=== PATIENT | female | born 1995 | race Caucasian/White ===

== ENCOUNTER 2017-06-20 00:23 | Emergency (ER) | payer BC, OTHER | END 2017-06-20 04:21 | disposition left against medical advice (07) | LOC: M ED 00:23 | DX: R55 Syncope and collapse (principal); Z53.21 Procedure and treatment not carried out due to patient leaving prior to being seen by health care provider | CPT/HCPCS: 93005 ==

== ENCOUNTER → 2019-04-14 | Outpatient (REF) | payer OTHER | LOC: M LAB REF 11:21 | PROVIDERS: ATTEND Physician Assistant | DX: J02.9 Acute pharyngitis, unspecified (principal) ==

== ENCOUNTER 2019-07-12 11:13 | Day surgery (SDC) | payer OTHER, BC ==
[~2019-07-12] VITALS: Ht 167.6 cm; Wt 67.5 kg
[~2019-07-12 11:13] MED LIST: BUPIVACAINE HCL 0.5% 10 ML VIAL As Ordered ONE; ENSK1TAB3 PO; IBUP200C25 PO; LIDOCAINE 1% MDV 20ML VIAL SQ PRN; LR 1,000 ML IV ONE; MULTCAP PO; VENTAER INH; VITAD1000T PO
[2019-07-12] MEDS ORDERED: METR-265 PO (11:40)
[2019-07-12] MEDS ORDERED: LIDOCAINE 2% INJ 100 MG/5 ML SDV (FOR ANES.) As Ordered ONE (12:22)
[2019-07-12] MEDS ORDERED: fentaNYL 250 MCG/5 ML INJECTION (J3010) As Ordered ONE (12:22)
[2019-07-12] MEDS ORDERED: propofoL 200 MG/20 ML VIAL As Ordered ONE (12:22)
[2019-07-12] MEDS ORDERED: ROCURONIUM BROMIDE 50 MG/5 ML VIAL As Ordered ONE (12:22)
[2019-07-12] MEDS ORDERED: MIDAZOLAM INJ 2 MG/2 ML VIAL (J2250) As Ordered ONE (12:24)
[2019-07-12] MEDS ORDERED: ACETAMINOPHEN 1000MG 100ML IV BTL (OFIRMEV) (J0131 PER 10MG) As Ordered ONE ×2 (12:44→12:45)
[2019-07-12] MEDS ORDERED: METOCLOPRAMIDE INJ 10MG/2ML VIAL (J2765) As Ordered ONE (12:45)
[2019-07-12] MEDS ORDERED: dexameTHASONE 4 MG/ML 1ML VIAL (J1100) As Ordered ONE (12:45)
[2019-07-12] MEDS ORDERED: ONDANSETRON 4MG/2ML VIAL (J2405) As Ordered ONE (12:45)
[2019-07-12] MEDS ORDERED: SUGAMMADEX SODIUM 500 MG/5 ML VIAL (BRIDION) As Ordered ONE (12:51)
[2019-07-12] MEDS ORDERED: oxyCODONE 5MG TAB As Ordered ONE (13:26)
[2019-07-12 13:45] VITALS: BP 109/76
[2019-07-12] MEDS ORDERED: ONDANSETRON 4MG/2ML VIAL (J2405) IV PRN (13:45)
[2019-07-12] MEDS ORDERED: oxyCODONE 5MG TAB PO PRN (13:45)
[2019-07-12] MEDS ORDERED: LR 1,000 ML IV SCH (13:45)
[2019-07-12] MEDS ORDERED: fentaNYL 100 MCG/2 ML INJECTION (J3010) IV PRN (13:45)
[2019-07-12] MEDS ORDERED: IBUPROFEN 800 MG TAB PO PRN (13:45)
[2019-07-12] MEDS ORDERED: HYDROcodone/APAP LIQUID 7.5-325MG 15ML UDC (LORTAB ELIXIR) PO PRN (13:45)
--- NOTE | 2019-07-13 23:42 | RO ---
DATE OF PROCEDURE: 07/12/2019 PREOPERATIVE DIAGNOSIS: Chronic tonsillitis. POSTOPERATIVE DIAGNOSIS: Chronic tonsillitis. PROCEDURE: Tonsillectomy. SURGEON: Andres Grande MD COLOR MAKER DYER: ANESTHESIA: INDICATIONS: This is a 23-year-old who presents with a history of recurrent tonsil stones, pharyngitis and sore throat. DESCRIPTION OF PROCEDURE: Satisfactory general endotracheal anesthesia was administered, patient placed in Trendelenburg position, Mony-Nelson gag was inserted. First, the right tonsil was grasped with an Allis clamp and retracted out of its muscular fossa. Using cutting cautery, incision was made on the anterior pillar 3 mm from its edge and the capsule of the tonsil was then identified. Using a combination of cautery and blunt dissection, the tonsil was dissected medially out of its muscular fossa, working superiorly down into the space between the constrictor muscle and the tonsil capsule. The tonsil was rolled medially out of its fossa, working inferiorly and preserving the posterior pillar in its entirety. Once the tonsil was suspended only at the inferior pole, coagulation current was used to amputate tissue. No significant bleeding was encountered in this dissection. The left tonsil was removed in a similar fashion. At the completion of the surgery, there was no significant blood loss noted. The gag was released at 3 minutes. Reinspection showed no active bleeding and then 0.5% Marcaine was injected into the tonsil fossa. She was awakened, extubated, and sent to recovery in satisfactory condition. She will be discharged home with Keflex suspension 250 mg twice a day and pain medicine will include Motrin 800 mg three times a day and Hycet elixir if needed.
== END 2019-07-12 14:39 | disposition home or self-care (01) ==
LOC: M SDC 11:13
PROVIDERS: ATTEND Specialist
DX: J35.01 Chronic tonsillitis (principal); E03.9 Hypothyroidism, unspecified; F41.9 Anxiety disorder, unspecified; F32.9 Major depressive disorder, single episode, unspecified; J45.909 Unspecified asthma, uncomplicated; Z79.899 Other long term (current) drug therapy
CPT/HCPCS: 42826; 81025; 88302; J0131; J1100; J2250; J2405; J2765; J3010

== ENCOUNTER → 2019-08-04 | Outpatient (CLI) | payer OTHER, BC ==
[~2019-08-04] MED LIST changes: -BUPIVACAINE HCL 0.5% 10 ML VIAL As Ordered ONE; -LIDOCAINE 1% MDV 20ML VIAL SQ PRN; -LR 1,000 ML IV ONE; +METR-265 PO
== END ==
LOC: M LABSMTC 10:29
PROVIDERS: ATTEND Family Medicine
DX: Z11.59 Encounter for screening for other viral diseases (principal); Z20.828 Contact with and (suspected) exposure to other viral communicable diseases

== ENCOUNTER → 2019-09-20 | Outpatient (REF) | payer OTHER ==
[2019-09-20 10:35] LABS: HEMATOCRIT 36.9 % (36.0-47.0); HEMOGLOBIN 12.7 g/dl (12.0-15.5); MEAN CORPUSCULAR HEMOGLOBIN 30.7 pg (27.0-33.0); MEAN CORPUSCULAR HGB CONC 34.4 g/dl (32.0-36.5); MEAN CORPUSCULAR VOLUME 89.1 fl (80.0-96.0); PLATELET COUNT, AUTOMATED 224 10^3/uL (150-450); RED BLOOD COUNT 4.14 10^6/uL (4.00-5.40); WHITE BLOOD COUNT 10.2 10^3/uL (4.0-10.0)
[2019-09-20 11:49] LABS: CHLAMYDIA DNA AMPLIFICATION NEGATIVE (NEGATIVE); GC DNA AMPLIFICATION NEGATIVE (NEGATIVE)
[2019-09-20 11:55] LABS: HEPATITIS B SURFACE ANTIGEN NEGATIVE (NEGATIVE); HEPATITIS C VIRUS ABY INDEX 0.1 INDEX (<0.8); HIV 1&2 SCREEN CENTAUR NEGATIVE (NEGATIVE)
== END ==
LOC: M PLALAB 08:09
PROVIDERS: ATTEND Advanced Practice Midwife
DX: Z34.01 Encounter for supervision of normal first pregnancy, first trimester (principal)

== ENCOUNTER 2019-10-05 12:18 | Emergency (ER) | payer OTHER ==
[~2019-10-05] VITALS: Ht 167.6 cm; Wt 63.4 kg
[2019-10-05] MEDS ORDERED: PREN29TA4 PO (12:57)
[2019-10-05] MEDS ORDERED: COLA100C5 PO (12:57)
[2019-10-05 14:03] LABS: BASO % 0.3 % (0.0-1.0); EOS # 0.1 10^3/uL (0.0-0.5); EOS % 1.5 % (0.0-3.0); HEMATOCRIT 40.3 % (36.0-47.0); HEMOGLOBIN 13.6 g/dl (12.0-15.5); LYMPH # 1.8 10^3/uL (1.5-5.0); LYMPH % 19.3 % (24.0-44.0); MEAN CORPUSCULAR HGB CONC 33.7 g/dl (32.0-36.5); MEAN CORPUSCULAR VOLUME 88.8 fl (80.0-96.0); MONO # 0.5 10^3/uL (0.0-0.8); MONO % 4.9 % (0.0-5.0); NEUTROPHILS # 6.8 10^3/uL (1.5-8.5); NEUTROPHILS % 73.7 % (36.0-66.0); PLATELET COUNT, AUTOMATED 233 10^3/uL (150-450); RED BLOOD COUNT 4.54 10^6/uL (4.00-5.40); WHITE BLOOD COUNT 9.3 10^3/uL (4.0-10.0)
[2019-10-05] MEDS ORDERED: METOCLOPRAMIDE INJ 10MG/2ML VIAL (J2765 PER 1) IV ONE (14:30)
[2019-10-05] MEDS ORDERED: NS 1,000 ML IV ONE (14:30)
[2019-10-05 15:21] LABS: ALBUMIN 3.7 GM/DL (3.2-5.2); ALT/SGPT 19 U/L (12-78); BILIRUBIN,DIRECT 0.2 MG/DL (0.0-0.2); BILIRUBIN,TOTAL 0.9 MG/DL (0.2-1.0); BLOOD UREA NITROGEN 9 MG/DL (7-18); CALCIUM LEVEL 9.5 MG/DL (8.5-10.1); CARBON DIOXIDE LEVEL 25 MEQ/L (21-32); CHLORIDE LEVEL 105 MEQ/L (98-107); CREATININE FOR GFR 0.56 MG/DL (0.55-1.30); GLOMERULAR FILTRATION RATE > 60.0 (>60); GLUCOSE, FASTING 69 MG/DL (70-100); HCG, SERUM QUANTITATIVE 131939 MIU/ML; LIPASE 126 U/L (73-393); POTASSIUM SERUM 3.7 MEQ/L (3.5-5.1); SODIUM LEVEL 137 MEQ/L (136-145); TOTAL PROTEIN 7.3 GM/DL (6.4-8.2)
[2019-10-05] MEDS ORDERED: REGL10TA6 PO (16:03)
[2019-10-05 16:20] VITALS: BP 103/53
== END 2019-10-05 16:22 | disposition home or self-care (01) ==
LOC: M ED 12:18
DX: O21.9 Vomiting of pregnancy, unspecified (principal); Z3A.12 12 weeks gestation of pregnancy; O99.341 Other mental disorders complicating pregnancy, first trimester; F32.9 Major depressive disorder, single episode, unspecified; F41.9 Anxiety disorder, unspecified; Z79.899 Other long term (current) drug therapy
CPT/HCPCS: 36415; 80048; 80076; 83690; 84702; 85025; 96361; 96374; 99284; J2765

== ENCOUNTER → 2019-10-15 | Outpatient (REF) | payer OTHER ==
[~2019-10-15] MED LIST changes: +COLA100C5 PO; +PREN29TA4 PO; +REGL10TA6 PO
[2019-10-15 14:26] LABS: FREE T4 1.01 NG/DL (0.76-1.46); THYROID STIMULATING HORMONE 3.94 uIU/ML (0.358-3.740)
== END ==
LOC: M PLALAB 11:18
PROVIDERS: ATTEND Advanced Practice Midwife
DX: O99.280 Endocrine, nutritional and metabolic diseases complicating pregnancy, unspecified trimester (principal); Z3A.13 13 weeks gestation of pregnancy

== ENCOUNTER → 2019-12-17 | Outpatient (CLI) | payer OTHER ==
[~2019-12-17] MED LIST changes: +D31000TA2 PO; -VITAD1000T PO
--- NOTE | 2020-02-03 09:54 | REP ---
OBSTETRICAL ULTRASOUND: Delay in reporting results from hospital computer system malfunction from malware/ ransomware. HISTORY: For anatomy. FINDINGS: There is a single intrauterine gestation. position is not described on the technologist worksheet, but upon review of the images, appears to be a breech presentation. The placenta is posterior and right lateral, grade 1 without previa and without abruptio. The heart rate is 135 beats per minute. The amniotic fluid volume subjectively is normal. The composite gestational age by the ultrasound today is 25 weeks 1 day with an EDC of 04/23/20. Estimated weight is 465 grams. The weight percentile is not calculated. The amniotic fluid volume subjectively is normal. The cervix measures 3.1 cm in length. The following anatomic structures are not optimally demonstrated: Four chamber view of the heart. A follow up study dedicated to this structure might be considered. The following anatomic structures are identified and are unremarkable: Cisterna magna, cavum septum pellucidum, thalami, spine, stomach, kidneys, cardiac right and left outflow tracts, bladder, three vessel cord, cord insertion, upper and lower extremities and face and upper lip. MTDD
== END ==
LOC: M WHC 16:43
PROVIDERS: ATTEND Advanced Practice Midwife
DX: Z34.02 Encounter for supervision of normal first pregnancy, second trimester (principal); Z3A.25 25 weeks gestation of pregnancy

== ENCOUNTER → 2020-01-06 | Outpatient (CLI) | payer OTHER ==
[2020-01-06 15:35] LABS: FREE T4 0.94 NG/DL (0.76-1.46); THYROID STIMULATING HORMONE 1.04 uIU/ML (0.358-3.740)
== END ==
LOC: M PLALAB 10:54
PROVIDERS: ATTEND Advanced Practice Midwife
DX: O99.280 Endocrine, nutritional and metabolic diseases complicating pregnancy, unspecified trimester (principal)

== ENCOUNTER → 2020-01-20 | Outpatient (CLI) | payer OTHER ==
--- NOTE | 2020-02-11 07:35 | REP ---
FOLLOW-UP OBSTETRICAL ULTRASOUND CLINICAL: Follow-up anatomical assessment. COMPARISON: 12/17/2019. TECHNIQUE: Transabdominal obstetrical ultrasound with color Doppler evaluation. FINDINGS: Current examination demonstrates single live intrauterine in cephalic presentation. motion was identified by the technologist. Placenta is noted posteriorly and grade 1 without evidence for placenta previa or abruption. Amniotic fluid volume is normal. Cervix measures 3.1 cm in length and appears closed. Gestational age by current measurements 27 weeks 5 days with estimated date of delivery 04/15/2020. heart rate 134 beats per minute. Amniotic fluid index (YESY) 11.1 cm. Estimated weight 1034 (44th percentile) Anatomical assessment demonstrates normal cranium, choroid plexus, facial features, four chamber heart/ventricular outflow tracts, diaphragm, stomach, kidneys, bladder, spine, three-vessel cord/cord insertion, and extremities. IMPRESSION: * Single live intrauterine in cephalic presentation demonstrating appropriate estimated weight. * In conjunction with prior examination, anatomical assessment is complete and normal. No gross abnormalities are identified. MTDD
== END ==
LOC: M WHC 14:34
PROVIDERS: ATTEND Advanced Practice Midwife
DX: Z36.89 Encounter for other specified antenatal screening (principal); Z3A.27 27 weeks gestation of pregnancy

== ENCOUNTER → 2020-02-01 | Outpatient (CLI) | payer OTHER ==
[2020-02-01 11:34] LABS: BASO # 0.1 10^3/uL (0.0-0.2); BASO % 0.4 % (0.0-1.0); EOS # 0.3 10^3/uL (0.0-0.5); EOS % 2.5 % (0.0-3.0); HEMATOCRIT 31.6 % (36.0-47.0); HEMOGLOBIN 10.6 g/dl (12.0-15.5); LYMPH # 2.2 10^3/uL (1.5-5.0); LYMPH % 19.3 % (24.0-44.0); MEAN CORPUSCULAR HEMOGLOBIN 30.8 pg (27.0-33.0); MEAN CORPUSCULAR HGB CONC 33.5 g/dl (32.0-36.5); MEAN CORPUSCULAR VOLUME 91.9 fl (80.0-96.0); MONO # 0.8 10^3/uL (0.0-0.8); MONO % 6.9 % (0.0-5.0); NEUTROPHILS # 7.9 10^3/uL (1.5-8.5); NEUTROPHILS % 69.9 % (36.0-66.0); PLATELET COUNT, AUTOMATED 200 10^3/uL (150-450); RED BLOOD COUNT 3.44 10^6/uL (4.00-5.40); WHITE BLOOD COUNT 11.2 10^3/uL (4.0-10.0)
== END ==
LOC: M PLALAB 07:55
PROVIDERS: ATTEND Advanced Practice Midwife
DX: Z34.02 Encounter for supervision of normal first pregnancy, second trimester (principal); Z3A.00 Weeks of gestation of pregnancy not specified

== ENCOUNTER → 2020-03-24 | Outpatient (REF) | payer OTHER | LOC: M SFHCWAGY 16:48 | PROVIDERS: ATTEND Advanced Practice Midwife | DX: O99.283 Endocrine, nutritional and metabolic diseases complicating pregnancy, third trimester (principal); N76.0 Acute vaginitis ==

== ENCOUNTER 2020-04-19 09:19 | Inpatient (IN) | payer OTHER ==
[2020-04-19] VITALS (36 sets, daily range): BP systolic 91–142; BP diastolic 50–94
[~2020-04-19] VITALS: Ht 167.6 cm; Wt 84.9 kg
[2020-04-19] MEDS ORDERED: LACTATED RINGER'S 1000 ML IV STA (09:50)
[2020-04-19] MEDS ORDERED: SYNT25TA PO (10:34)
[2020-04-19 10:40] LABS: HEMATOCRIT 36.8 % (36.0-47.0); HEMOGLOBIN 11.7 g/dl (12.0-15.5); MEAN CORPUSCULAR HEMOGLOBIN 26.4 pg (27.0-33.0); MEAN CORPUSCULAR HGB CONC 31.8 g/dl (32.0-36.5); MEAN CORPUSCULAR VOLUME 83.1 fl (80.0-96.0); PLATELET COUNT, AUTOMATED 270 10^3/uL (150-450); RED BLOOD COUNT 4.43 10^6/uL (4.00-5.40)
--- NOTE | 2020-04-19 11:45 | HPEPDOC ---
Obstetrical History & Physical General Date of Admission Apr 19, 2020 at 09:50 Primary Care Physician: ROWENA MENDOZA CNM History of Present Illness Viki is a 24-year-old female who is a at 40.1 weeks gestation with an JUAN ALBERTO of 04/18/20 based off of her LMP and consistent with her first trimester ultrasound. She initiated care in her first trimester with [facility]. Her has been complicated by Nick's thyroiditis. She is controlled with Synthroid 25 mcg. She presents to L&D with complaints of contractions every 2-3 minutes, rectal pressure and bloody show. She denies leaking of fluid and reports her baby has been active. Chief Complaint: Active Labor Information Provided By: Patient Age: 24 : 1 Term: 0 Pre-term: 0 Abortions: 0 Livin Care Care: Good Care Dating Final EDC: Apr 18, 2020 Final EDC by: LMP LMP: Jul 13, 2019 EGA at Admission: 40.1 Antepartum Course Diagnos(e)s Nick's Height (inches): 66 Pre- weight (lbs.): 142 Admission Weight (lbs.): 184 Change in Weight (lbs.): 42 Past Medical History Past Obstetrical History : Past Obstetrical History: Primgravida [employer]PEDITER History: No pertinent history Past Medical History Medical History Asthma and Hashomoto's Surgical History: Tonsilectomy Family History Significant Family History: Cancer (father with colon cancer) Social History Social history She is a RN at [employer] Marital Status: Single Family situation: Spouse/partner home Psychosocial History: No pertinent psych hx * Smoker: non-smoker Alcohol: Denies Drugs: denies Imunizations Influenza Status: current Allergies Coded Allergies: No Known Allergies (Unverified , 07/02/19) Medications Scheduled Docusate Sodium (Colace) 100 Mg Capsule, 100 MG PO DAILY Prenat 115/Iron Fum/Folic/Dss ( 19 Tablet) 1 Each Tablet, 1 TAB PO DAILY Scheduled PRN Metoclopramide HCl (Reglan) 10 Mg Tablet, 10 MG PO Q6H PRN for NAUSEA Physical Examination Physical Examination GENERAL: Alert and oriented times three. BREAST: . ABDOMEN: Gravid and non-tender to touch. FETUS: Is vertex (VTX) by sterile vaginal examination (SVE), fetus is vertex (VTX) by Misha. LUNGS: Clear to auscultation (CTA). EXTREMITIES: No edema. No clonus. Deep tendon reflexes (DTRs) + 2. Laboratory Data [facility] Laboratory Tests 2 04/19/20 10:04: Serology Scanned Report Hepatitis B Testing Urine Culture: No Growth Pertinent Laboratoy Data Blood Type: A+ RBC Antibody Screen: Negative HIV: Negative Hepatitis B: Negative Hepatitis C: Negative Rapid Plasma Reagin: Nonreactive Rubella: Immune Chlamydia/Gonorrhea: Negative Group B Streptococcus: Negative Glucose Tolerance Test: 115 Vaginal Examination Dilation: 4 cm Effacement: 100% Station: -1 Cervical Consistency: Soft Cervical Position: Middle Presentation: Cephalic presentation Position: Vertex (occiput) Assessment Heart Rate (FHR): 120 Variability: Moderate Accelerations: Positive Decelerations: None Tocometer Contractions: Yes Frequency: regular Assessment/Plan Assessment IUP at 40.1 weeks gestation active labor Category I FHR GBS negative Plan Admit to L&D. OOB ad lam. Diet: regular. Group B Streptococcus (GBS) negative. Labs and intravenous (IV) per unit protocol. Anesthesia consult per patient's request. Lactated Ringers (LR): Bolus 800 mL prior to epidural, then at 125 mL/hr. Anticipate cervical change and . C-S as appropriate. ROWENA MENDOZA CNM Apr 19, 2020 11:45
[2020-04-19] MEDS ORDERED: BUTORPHANOL 2 MG/ML INJ (J0595) IV ONE (13:30)
[2020-04-19] MEDS ORDERED: PROMETHAZINE INJ 25 MG/ML VIAL (J2550) IV ONE (13:30)
[2020-04-19] MEDS ORDERED: LR 1,000 ML IV SCH ×2 (13:45→17:21)
[2020-04-19] MEDS ORDERED: FENTANYL 2MCG/ML ROPIVACAINE 0.2% IN 0.9% NACL 100ML IVBAG As Ordered ONE (15:48)
[2020-04-19] MEDS ORDERED: FENTANYL/ROPIVACAINE/NACL BAG 100 ML EPIDURAL SCH (17:00)
[2020-04-19] MEDS ORDERED: LACTATED RINGER'S 1000 ML IV PRN (17:00)
[2020-04-19] MEDS ORDERED: REFRIGERATOR IV KEYS XX PRN (17:00)
[2020-04-19] MEDS ORDERED: NALOXONE INJ 0.4MG/1ML VIAL (J2310 PER 1MG) IV PRN (17:00)
[2020-04-19] MEDS ORDERED: ePHEDrine SULFATE 25 MG/5 ML(5MG/ML) SYRINGE IV PRN (17:00)
[2020-04-19] MEDS ORDERED: diphenhydrAMINE 50MG/ML VIAL (J1200) IV PRN (17:00)
[2020-04-19] MEDS ORDERED: ONDANSETRON 4MG/2ML VIAL IV PRN (17:00)
[2020-04-19] MEDS ORDERED: EPIDURAL COMMENT XX SCH (17:00)
[2020-04-19] MEDS ORDERED: EPIDURAL/PCA KEYS XX PRN (17:00)
[2020-04-19] MEDS ORDERED: OXYTOCIN DRIP 30 UNITS in IV 1 EA IV SCH ×2 (17:30→20:36)
[2020-04-19] MEDS ORDERED: RHOGAM 300 MCG (1500 IU) INJ (J2790) IM SCH (20:45)
[2020-04-19] MEDS ORDERED: BENZOCAINE 20% HEMORRHOIDAL OINTMENT 28GM TUBE TOP PRN (20:45)
[2020-04-19] MEDS ORDERED: ACETAMINOPHEN TAB 650MG DOSE (2X325MG) PO PRN (20:45)
[2020-04-19] MEDS ORDERED: IBUPROFEN 800 MG TAB PO PRN (20:45)
[2020-04-19] MEDS ORDERED: DOCUSATE SODIUM 100MG CAPSULE PO PRN (20:45)
[2020-04-19] MEDS ORDERED: ACETAMINOPHEN 500 MG TAB PO PRN (20:45)
[2020-04-19] MEDS ORDERED: MEASLES,MUMPS,RUBELLA VACCINE INJ (MMR-II) (90707) SC SCH (20:45)
[2020-04-19] MEDS ORDERED: IBUPROFEN 600MG TAB PO PRN (20:45)
[2020-04-19] MEDS ORDERED: METHYLERGONOVINE MALEATE 0.2 MG TAB PO PRN (20:45)
--- NOTE | 2020-04-20 00:11 | DN ---
DELIVERY NOTE DATE OF DELIVERY: 04/19/2020 TIME OF : 20:04 DESCRIPTION OF DELIVERY: Viki is a 24-year-old, 1, para 1, 0, 0, 1 now, who was admitted to labor and delivery in active labor. She utilized I.V. pain medications and an epidural to cope with her labor. She did reach complete dilation at 19:21. She had assisted rupture of membranes for moderate amount of clear fluid at 19:21 as well. She pushed through a normal spontaneous vaginal delivery of a live male infant in AO position with restitution to LOT position at 20:04. There was a nuchal cord x1, loose, that was reduced at the time of delivery. The 's shoulders delivered with gentle downward traction and the corpus immediately followed. He was placed on the maternal abdomen, crying and active. Mouth and nares were bulb suctioned. The cord was clamped x2 once the pulsations ceased and was cut by the father of the baby under my direction. A spontaneous expulsion of an intact placenta with three-vessel cord by Schultze mechanism was at 20:08. Uterine hemostasis achieved with I.V. Pitocin rapid infusion and uterine fundal massage. Estimated blood loss 400 mL. Perineum and vagina inspected, noted to have a second degree midline laceration. The laceration was repaired with 3-0 Vicryl Rapide in the usual fashion. The male weighed 7 pounds 10 ounces (3450 grams). Apgars 9 and 9. The family have named their son Martir. The mom is going to breastfeed. At the close of delivery, lab counts, needle counts and instrument counts were correct and verified.
[2020-04-20 06:00] VITALS: BP 125/77
[2020-04-20] MEDS: LEVOTHYROXINE 25MCG TABLET (0.025MG) PO SCH (06:38)
[2020-04-20] MEDS: PRENATAL VITAMINS CHEWABLE TABLET PO SCH (09:00)
[2020-04-20 18:17] VITALS: BP 104/72
[2020-04-21] MEDS: LEVOTHYROXINE 25MCG TABLET (0.025MG) PO SCH (05:44)
[2020-04-21 06:00] VITALS: BP 113/56
[2020-04-21] MEDS: PRENATAL VITAMINS CHEWABLE TABLET PO SCH (09:04)
== END 2020-04-21 15:50 | disposition home or self-care (01) | DRG 807 ==
LOC: M LDO 09:19 → EEVIPCON 09:50 → M LDI 09:50 → M OBS 21:50
PROVIDERS: ADMIT Advanced Practice Midwife; ATTEND Advanced Practice Midwife
PROC: 10E0XZZ Delivery of Products of Conception, External Approach (ICD-10-PCS; principal; 2020-04-19)
PROC: 0KQM0ZZ Repair Perineum Muscle, Open Approach (ICD-10-PCS; 2020-04-19)
PROC: 10907ZC Drainage of Amniotic Fluid, Therapeutic from Products of Conception, Via Natural or Artificial Opening (ICD-10-PCS; 2020-04-19)
DX: O48.0 Post-term pregnancy (principal); Z37.0 Single live birth; Z3A.40 40 weeks gestation of pregnancy; E06.3 Autoimmune thyroiditis; O99.284 Endocrine, nutritional and metabolic diseases complicating childbirth; O69.81X0 Labor and delivery complicated by cord around neck, without compression, not applicable or unspecified; O70.1 Second degree perineal laceration during delivery